=== PATIENT | male | born 1960 | race Asian ===

== ENCOUNTER 2019-12-06 08:37 | Emergency (ER) | payer OTHER ==
[~2019-12-06] VITALS: Ht 165.1 cm; Wt 81.6 kg
[2019-12-06 08:52] VITALS: Ht 165.1 cm; Wt 81.6 kg
[2019-12-06 10:13] LABS: BASOPHIL % 0.4 % (0-2); RED CELL DISTRIBUTION WIDTH 13.1 % (11.5-14.5)
[2019-12-06 10:19] LABS: PLATELET COUNT 111 x10^3mcL (130-400)
[2019-12-06 10:52] LABS: CALCIUM 8.7 mg/dL (8.5-10.1); CARBON DIOXIDE 25.1 mmol/L (21-32); CHLORIDE SERUM 103 mmol/L (98-107); CREATININE SERUM 1.2 mg/dL (0.7-1.3); GFR1 > 60 mL/min; GLUCOSE SERUM 100 mg/dL (74-106); SODIUM SERUM 137 mmol/L (136-145)
[2019-12-06 10:57] LABS: ALBUMIN 3.5 g/dL (3.4-5.0); ALKALINE PHOSPHATASE 50 U/L (46-116); ALT/SGPT 62 U/L (16-63); AST/SGOT 42 U/L (15-37); BILIRUBIN TOTAL 0.51 mg/dL (0.20-1.00); TOTAL PROTEIN, SERUM 7.5 g/dL (6.4-8.2)
[2019-12-06 10:59] LABS: POTASSIUM SERUM 4.4 mmol/L (3.5-5.1)
[2019-12-06 13:07] VITALS: BP 120/75
== END 2019-12-06 13:07 | disposition home or self-care (01) ==
LOC: ED 08:37
PROVIDERS: Emergency Medicine
DX: B34.9 Viral infection, unspecified (principal); J45.909 Unspecified asthma, uncomplicated
CPT/HCPCS: 85378; 87804; J7030; Q0092